=== PATIENT | female | born 1985 | race Native Hawaiian/Other Pacific Islander ===

== ENCOUNTER 2017-08-18 20:10 | Inpatient (IN) | payer SELFPAY ==
[2017-08-18] MEDS ORDERED: LACTATED RINGERS 1,000 ML IV ONE (21:53)
[2017-08-18] MEDS ORDERED: LACTATED RINGERS 1,000 ML ONE (21:58)
[2017-08-18] MEDS ORDERED: ZOFRAN IV PRN (23:20)
[2017-08-18] MEDS ORDERED: XYLOCAINE 2% INFILTRATI ONE (23:20)
[2017-08-18] MEDS ORDERED: NARCAN 0.4 MG/1 ML IV PRN (23:20)
[2017-08-18] MEDS ORDERED: MINERAL OIL PO PRN (23:20)
[2017-08-18] MEDS ORDERED: BRETHINE SUB-Q PRN (23:20)
[2017-08-18] MEDS ORDERED: PHENERGAN PO PRN (23:20)
[2017-08-18] MEDS ORDERED: POLYCILLIN/NS 2 GM/100 ML 2 GM/100 ML BAG IV ONE (23:20)
[2017-08-18] MEDS ORDERED: ePHEDrine SULFATE IV PRN (23:20)
[2017-08-18] MEDS ORDERED: SUBLIMAZE IV PRN (23:20)
[2017-08-18] MEDS ORDERED: BRETHINE IVP PRN (23:20)
--- NOTE | 2017-08-18 23:30 | History and Physical Report ---
History of Present Illness Date of examination: 08/18/17 Date of admission: 08/18/17 23:05 Chief complaint: Leaking fluid History of present illness: Pt is a 31yo HF EDC 09/23/17; EGA 34 6/7 weeks presents to [facility] L[facility]D complaining of vaginal leaking fluid for 2 days. OB u/s showed renee with THUAN 2.1 She received care with [facility] but records are not available, and GBS is unknown. Past History Past Medical History: no pertinent history Past Surgical History: no surgical history Social history: no significant social history, - Obstetrical History Expected Date of Delivery: 09/23/17 Actual Gestation: 35 Week(s) 0 Day(s) : 3 Medications and Allergies Allergies Allergy/AdvReac Type Severity Reaction Status Date / Time No Known Allergies Allergy Unverified 08/18/17 21:36 Home Medications Medication Instructions Recorded Confirmed Last Taken Type No Known Home Medications [No 08/19/17 08/19/17 Unknown History Reported Home Medications] Active Meds: Active Medications Butorphanol Tartrate (Stadol) 2 mg IV Q2H PRN PRN Reason: Pain , Severe (7-10) Ephedrine Sulfate (Ephedrine Sulfate) 10 mg IV Q2M PRN PRN Reason: Hypotension Stop: 08/18/17 23:25 Fentanyl (Sublimaze) 100 mcg IV Q2H PRN PRN Reason: Labor Pain Ampicillin Sodium (Polycillin/Ns 1 Gm/50 Ml) 1 gm in 50 mls @ 100 mls/hr IV Q4HR NIGEL PRN Reason: Protocol Ampicillin Sodium (Polycillin/Ns 2 Gm/100 Ml) 2 gm in 100 mls @ 100 mls/hr IV ONCE ONE PRN Reason: Protocol Stop: 08/19/17 00:19 Lactated Ringer's (Lactated Ringers) 1,000 mls @ 125 mls/hr IV DIRECT NIGEL Oxytocin/Sodium Chloride (Pitocin/Ns 20 Unit/1000ml Drip) 20 units in 1,000 mls @ 125 mls/hr IV DIRECT NIGEL Oxytocin/Sodium Chloride (Pitocin/Ns 30 Unit/500ml) 30 units in 500 mls @ 1 mls /hr IV TITR NIGEL PRN Reason: Protocol Oxytocin/Sodium Chloride (Pitocin/Ns 30 Unit/500ml) 30 units in 500 mls @ 1 mls /hr IV TITR NIGEL; 1 MILLIUNITS/MIN PRN Reason: Protocol Lidocaine (Xylocaine 2%) 20 ml INFILTRATI ONCE ONE Stop: 08/18/17 23:21 Mineral Oil (Mineral Oil) 30 ml PO QHS PRN PRN Reason: Constipation Naloxone HCl (Narcan 0.4 Mg/1 Ml) 0.1 mg IV Q2MIN PRN PRN Reason: Res Rate </= 8 or 02 SAT < 92% Ondansetron HCl (Zofran) 4 mg IV Q8H PRN PRN Reason: Nausea And Vomiting Promethazine HCl (Phenergan) 25 mg PO Q6H PRN PRN Reason: Nausea And Vomiting Terbutaline Sulfate (Brethine) 0.25 mg SUB-Q ONCE PRN PRN Reason: Hyperstimulation/Hypertonicity Stop: 08/18/17 23:21 Terbutaline Sulfate (Brethine) 0.25 mg IVP ONCE PRN PRN Reason: Hyperstimulation/Hypertonicity Stop: 08/18/17 23:21 Review of Systems All systems: negative - Vital Signs Vital signs: Vital Signs Pulse BP 72 102/63 08/18/17 20:52 08/18/17 20:52 Temp Pulse Resp BP Pulse Ox 98.1 F 85 16 111/69 08/18/17 21:37 08/18/17 22:22 08/18/17 21:37 08/18/17 22:22 - Physical Exam Breasts: Positive: deferred Cardiovascular: Regular rate Lungs: Positive: Clear to auscultation Abdomen: Positive: normal appearance Genitourinary (Female): Positive: normal external genitalia Vagina: Positive: normal moisture Uterus: Positive: enlarged Extremities: Positive: normal - Obstetrical FHR: category 1 Uterine Contraction Monitor Mode: External Cervical Dilatation: 1 Cervical Effacement Percentage: 50 station: -3 Uterine Contraction Pattern: Irregular Uterine Tone Measurement Phase: Contraction Uterine Contraction Intensity: Mild Results Result Diagrams: 08/19/17 00:11 All other labs normal. Ultrasound: report reviewed Assessment and Plan - Patient Problems (1) 35 weeks gestation of Onset Date: 08/18/17 Current Visit: Yes Status: Acute Plan to address problem: A: IUP @ 34 6/7 weeks PPROM - stable PTL P: Admit to L&D for expectant management IV Ampicillin NICU consultation Obtain Medical records (2) premature rupture of membranes (PPROM) with onset of labor after 24 hours of rupture in third trimester, antepartum Onset Date: 08/18/17 Current Visit: Yes Status: Acute
[2017-08-18] MEDS ORDERED: PITOCin/NS 20 UNIT/1000ML DRIP 20 UNITS/1,000 ML BAG IV SCH (23:45)
--- NOTE | 2017-08-18 23:52 | Ultrasound Report ---
FINAL REPORT PROCEDURE: US OB LIMITED TECHNIQUE: Real-time limited sonographic examination was performed for evaluation of size, position, heartbeat, fluid volume for each fetus with image documentation (1 or more fetuses). CPT 89812 HISTORY: vaginal leaking/ THUAN COMPARISON: No prior studies are available for comparison. FINDINGS: There is a single live intrauterine gestation. Amniotic fluid index is 2.1 centimeters indicating oligohydramnios. Heart rate is 138 beats per minute. IMPRESSION: Amniotic fluid index is 2.1 centimeters. There is oligohydramnios. heart rate is 138 beats per minute.
[2017-08-19] MEDS: LACTATED RINGERS 1,000 ML IV SCH ×3 (00:42→13:33)
[2017-08-19 00:47] LABS: Hematocrit 35.9 % (30.3-42.9); Hemoglobin 11.1 gm/dl (10.1-14.3); Mean Corpuscular HGB Conc 31 % (30-34); Mean Corpuscular Volume 75 fl (79-97); Platelet Count 304 K/mm3 (140-440); Red Blood Count 4.81 M/mm3 (3.65-5.03); Red Cell Distribution Width 14.8 % (13.2-15.2); White Blood Count 9.8 K/mm3 (4.5-11.0)
[2017-08-19] MEDS: PITOCin/NS 30 UNIT/500ML 30 UNITS/500 ML BAG IV SCH ×5 (00:47→10:39)
[2017-08-19 00:48] LABS: Mean Corpuscular Hemoglobin 23 pg (28-32)
[2017-08-19] MEDS: STADOL IV PRN ×3 (01:50→10:36)
[2017-08-19] MEDS: POLYCILLIN/NS 1 GM/50 ML 1 GM/50 ML BAG IV SCH ×3 (03:49→13:32)
--- NOTE | 2017-08-19 08:57 | Progress Note ---
Assessment and Plan - Patient Problems (1) 35 weeks gestation of Onset Date: 08/18/17 Current Visit: Yes Status: Acute Plan to address problem: heart tracing, toco montoring (2) premature rupture of membranes (PPROM) with onset of labor after 24 hours of rupture in third trimester, antepartum Onset Date: 08/18/17 Current Visit: Yes Status: Acute Plan to address problem: IV pitocin IV antibiotics Anticipate Subjective - Subjective Date of service: 08/19/17 Principal diagnosis: PPROM Interval history: Patient was admitted last night for PPROM with clear fluid. She was started on IV antibiotics for GBS prophylaxis. She now feels occasional contractions. Patient reports: loss of fluid Objective - Vital Signs Vital Signs: Vital Signs - 12hr 08/18/17 08/18/17 08/18/17 21:07 21:22 21:37 Temperature 98.1 F Pulse Rate 86 78 81 Respiratory 16 Rate Blood Pressure 109/71 109/64 111/72 Blood Pressure [Right] O2 Sat by Pulse Oximetry 08/18/17 08/18/17 08/18/17 21:52 22:07 22:22 Temperature Pulse Rate 80 84 85 Respiratory Rate Blood Pressure 99/65 99/63 111/69 Blood Pressure [Right] O2 Sat by Pulse Oximetry 08/19/17 08/19/17 08/19/17 00:36 00:41 00:46 Temperature Pulse Rate 77 75 75 Respiratory Rate Blood Pressure Blood Pressure [Right] O2 Sat by Pulse 96 97 96 Oximetry 08/19/17 08/19/17 08/19/17 00:51 00:56 01:01 Temperature Pulse Rate 76 82 77 Respiratory Rate Blood Pressure Blood Pressure [Right] O2 Sat by Pulse 96 97 97 Oximetry 08/19/17 08/19/17 08/19/17 01:06 01:11 01:16 Temperature Pulse Rate 74 77 81 Respiratory Rate Blood Pressure 90/54 Blood Pressure [Right] O2 Sat by Pulse 96 95 96 Oximetry 08/19/17 08/19/17 08/19/17 01:21 01:26 01:31 Temperature Pulse Rate 77 76 80 Respiratory Rate Blood Pressure Blood Pressure [Right] O2 Sat by Pulse 96 96 96 Oximetry 08/19/17 08/19/17 08/19/17 01:36 01:41 01:46 Temperature Pulse Rate 72 88 86 Respiratory Rate Blood Pressure 87/54 Blood Pressure [Right] O2 Sat by Pulse 95 97 96 Oximetry 08/19/17 08/19/17 08/19/17 01:51 01:55 01:56 Temperature Pulse Rate 74 77 74 Respiratory Rate Blood Pressure Blood Pressure [Right] O2 Sat by Pulse 96 94 96 Oximetry 08/19/17 08/19/17 08/19/17 02:01 02:05 02:06 Temperature Pulse Rate 77 71 82 Respiratory Rate Blood Pressure 93/56 Blood Pressure [Right] O2 Sat by Pulse 94 93 Oximetry 08/19/17 08/19/17 08/19/17 02:11 02:12 02:16 Temperature Pulse Rate 86 88 85 Respiratory Rate Blood Pressure Blood Pressure [Right] O2 Sat by Pulse 91 92 94 Oximetry 08/19/17 08/19/17 08/19/17 02:18 02:21 02:26 Temperature Pulse Rate 78 80 83 Respiratory Rate Blood Pressure Blood Pressure [Right] O2 Sat by Pulse 91 93 93 Oximetry 08/19/17 08/19/17 08/19/17 02:31 02:36 02:41 Temperature Pulse Rate 89 75 74 Respiratory Rate Blood Pressure 93/51 Blood Pressure [Right] O2 Sat by Pulse 93 94 92 Oximetry 08/19/17 08/19/17 08/19/17 02:46 02:51 02:56 Temperature Pulse Rate 86 84 86 Respiratory Rate Blood Pressure Blood Pressure [Right] O2 Sat by Pulse 94 94 94 Oximetry 08/19/17 08/19/17 08/19/17 03:01 03:06 03:11 Temperature Pulse Rate 85 79 80 Respiratory Rate Blood Pressure 83/50 Blood Pressure [Right] O2 Sat by Pulse 93 95 94 Oximetry 08/19/17 08/19/17 08/19/17 03:16 03:21 03:26 Temperature Pulse Rate 83 96 H 90 Respiratory Rate Blood Pressure Blood Pressure [Right] O2 Sat by Pulse 94 94 93 Oximetry 08/19/17 08/19/17 08/19/17 03:31 03:36 03:37 Temperature Pulse Rate 80 87 77 Respiratory Rate Blood Pressure 92/51 Blood Pressure [Right] O2 Sat by Pulse 94 95 Oximetry 08/19/17 08/19/17 08/19/17 03:41 03:46 03:51 Temperature Pulse Rate 88 85 79 Respiratory Rate Blood Pressure Blood Pressure [Right] O2 Sat by Pulse 95 94 95 Oximetry 08/19/17 08/19/17 08/19/17 03:56 04:01 04:06 Temperature Pulse Rate 80 83 75 Respiratory Rate Blood Pressure 90/54 Blood Pressure [Right] O2 Sat by Pulse 94 94 95 Oximetry 08/19/17 08/19/17 08/19/17 04:11 04:16 04:25 Temperature Pulse Rate 79 73 81 Respiratory Rate Blood Pressure Blood Pressure [Right] O2 Sat by Pulse 95 95 96 Oximetry 08/19/17 08/19/17 08/19/17 04:30 04:35 04:40 Temperature Pulse Rate 79 86 84 Respiratory Rate Blood Pressure Blood Pressure [Right] O2 Sat by Pulse 95 96 96 Oximetry 08/19/17 08/19/17 08/19/17 04:45 04:50 04:55 Temperature Pulse Rate 72 77 73 Respiratory Rate Blood Pressure Blood Pressure [Right] O2 Sat by Pulse 94 93 93 Oximetry 08/19/17 08/19/17 08/19/17 05:00 05:05 05:06 Temperature Pulse Rate 73 76 75 Respiratory Rate Blood Pressure 87/52 Blood Pressure [Right] O2 Sat by Pulse 93 93 Oximetry 08/19/17 08/19/17 08/19/17 05:10 05:15 05:20 Temperature Pulse Rate 78 77 78 Respiratory Rate Blood Pressure Blood Pressure [Right] O2 Sat by Pulse 92 93 93 Oximetry 08/19/17 08/19/17 08/19/17 05:25 05:30 05:35 Temperature Pulse Rate 80 81 72 Respiratory Rate Blood Pressure Blood Pressure [Right] O2 Sat by Pulse 91 93 93 Oximetry 08/19/17 08/19/17 08/19/17 05:36 05:40 05:42 Temperature Pulse Rate 77 82 76 Respiratory Rate Blood Pressure 86/51 Blood Pressure [Right] O2 Sat by Pulse 93 91 Oximetry 08/19/17 08/19/17 08/19/17 05:45 05:50 05:55 Temperature Pulse Rate 78 83 79 Respiratory Rate Blood Pressure Blood Pressure [Right] O2 Sat by Pulse 93 93 93 Oximetry 08/19/17 08/19/17 08/19/17 06:00 06:05 06:10 Temperature Pulse Rate 85 78 79 Respiratory Rate Blood Pressure 91/52 Blood Pressure [Right] O2 Sat by Pulse 93 95 93 Oximetry 08/19/17 08/19/17 08/19/17 06:15 06:20 06:25 Temperature Pulse Rate 83 83 77 Respiratory Rate Blood Pressure Blood Pressure [Right] O2 Sat by Pulse 94 93 93 Oximetry 08/19/17 08/19/17 08/19/17 06:30 06:35 06:40 Temperature Pulse Rate 85 87 88 Respiratory Rate Blood Pressure 103/63 Blood Pressure [Right] O2 Sat by Pulse 94 94 94 Oximetry 08/19/17 08/19/17 08/19/17 06:45 06:50 06:55 Temperature Pulse Rate 87 82 86 Respiratory Rate Blood Pressure Blood Pressure [Right] O2 Sat by Pulse 94 95 94 Oximetry 08/19/17 08/19/17 08/19/17 07:00 07:05 07:06 Temperature Pulse Rate 84 90 76 Respiratory Rate Blood Pressure 95/56 Blood Pressure [Right] O2 Sat by Pulse 94 94 Oximetry 08/19/17 08/19/17 08/19/17 07:10 07:15 07:20 Temperature Pulse Rate 86 81 81 Respiratory Rate Blood Pressure Blood Pressure [Right] O2 Sat by Pulse 94 94 94 Oximetry 08/19/17 08/19/17 08/19/17 07:25 07:30 07:35 Temperature Pulse Rate 82 81 77 Respiratory Rate Blood Pressure 87/52 Blood Pressure [Right] O2 Sat by Pulse 94 94 94 Oximetry 08/19/17 08/19/17 08/19/17 07:40 07:45 07:50 Temperature Pulse Rate 78 77 74 Respiratory Rate Blood Pressure Blood Pressure [Right] O2 Sat by Pulse 94 94 94 Oximetry 08/19/17 08/19/17 08/19/17 07:55 08:00 08:05 Temperature Pulse Rate 86 75 76 Respiratory Rate Blood Pressure 89/52 Blood Pressure [Right] O2 Sat by Pulse 94 93 94 Oximetry 08/19/17 08/19/17 08/19/17 08:10 08:15 08:20 Temperature Pulse Rate 75 74 87 Respiratory Rate Blood Pressure Blood Pressure [Right] O2 Sat by Pulse 94 94 95 Oximetry 08/19/17 08/19/17 08/19/17 08:25 08:30 08:42 Temperature Pulse Rate 74 79 79 Respiratory Rate Blood Pressure Blood Pressure [Right] O2 Sat by Pulse 95 95 95 Oximetry 08/19/17 08/19/17 08/19/17 08:44 08:45 08:47 Temperature 98.1 F Pulse Rate 70 78 75 Respiratory 16 Rate Blood Pressure 100/61 Blood Pressure 100/61 [Right] O2 Sat by Pulse 95 93 Oximetry 08/19/17 08/19/17 08:52 08:57 Temperature Pulse Rate 77 91 H Respiratory Rate Blood Pressure Blood Pressure [Right] O2 Sat by Pulse 95 96 Oximetry - Exam FHR: category 1 Uterine Contraction Monitor Mode: External Cervical Dilatation: 1 Cervical Effacement Percentage: 50 station: -2 Uterine Contraction Frequency (min): every 7-10 mins Uterine Contraction Pattern: Irregular Uterine Contraction Intensity: Mild Deep Tendon Reflex Grade: Normal +2 - Labs Labs: Abnormal Labs 08/19/17 00:11 MCV 75 L MCH 23 L Laboratory Results - last 24 hr 08/19/17 08/19/17 00:11 00:11 WBC 9.8 RBC 4.81 Hgb 11.1 Hct 35.9 MCV 75 L MCH 23 L MCHC 31 RDW 14.8 Plt Count 304 Blood Type O POSITIVE Antibody Screen Negative
--- NOTE | 2017-08-19 11:10 | Progress Note ---
Assessment and Plan A: IUP @ 35 weeks Category I Tracing PROM GBS Unknown P: Cook's Cervical Ripening Balloon Placed Continue Pitocin Induction Continue GBS Prophylaxis Prepare for Epidural Anesthesia Requesting Records from [facility] Subjective - Subjective Date of service: 08/19/17 Principal diagnosis: PPROM Patient reports: loss of fluid, contractions, other (States she received care a [facility]; states her course was uncomplicated.) Objective - Vital Signs Vital Signs: Vital Signs - 12hr 08/19/17 08/19/17 08/19/17 00:36 00:41 00:46 Temperature Pulse Rate 77 75 75 Respiratory Rate Blood Pressure Blood Pressure [Right] O2 Sat by Pulse 96 97 96 Oximetry 08/19/17 08/19/17 08/19/17 00:51 00:56 01:01 Temperature Pulse Rate 76 82 77 Respiratory Rate Blood Pressure Blood Pressure [Right] O2 Sat by Pulse 96 97 97 Oximetry 08/19/17 08/19/17 08/19/17 01:06 01:11 01:16 Temperature Pulse Rate 74 77 81 Respiratory Rate Blood Pressure 90/54 Blood Pressure [Right] O2 Sat by Pulse 96 95 96 Oximetry 08/19/17 08/19/17 08/19/17 01:21 01:26 01:31 Temperature Pulse Rate 77 76 80 Respiratory Rate Blood Pressure Blood Pressure [Right] O2 Sat by Pulse 96 96 96 Oximetry 08/19/17 08/19/17 08/19/17 01:36 01:41 01:46 Temperature Pulse Rate 72 88 86 Respiratory Rate Blood Pressure 87/54 Blood Pressure [Right] O2 Sat by Pulse 95 97 96 Oximetry 08/19/17 08/19/17 08/19/17 01:51 01:55 01:56 Temperature Pulse Rate 74 77 74 Respiratory Rate Blood Pressure Blood Pressure [Right] O2 Sat by Pulse 96 94 96 Oximetry 08/19/17 08/19/17 08/19/17 02:01 02:05 02:06 Temperature Pulse Rate 77 71 82 Respiratory Rate Blood Pressure 93/56 Blood Pressure [Right] O2 Sat by Pulse 94 93 Oximetry 08/19/17 08/19/17 08/19/17 02:11 02:12 02:16 Temperature Pulse Rate 86 88 85 Respiratory Rate Blood Pressure Blood Pressure [Right] O2 Sat by Pulse 91 92 94 Oximetry 08/19/17 08/19/17 08/19/17 02:18 02:21 02:26 Temperature Pulse Rate 78 80 83 Respiratory Rate Blood Pressure Blood Pressure [Right] O2 Sat by Pulse 91 93 93 Oximetry 08/19/17 08/19/17 08/19/17 02:31 02:36 02:41 Temperature Pulse Rate 89 75 74 Respiratory Rate Blood Pressure 93/51 Blood Pressure [Right] O2 Sat by Pulse 93 94 92 Oximetry 08/19/17 08/19/17 08/19/17 02:46 02:51 02:56 Temperature Pulse Rate 86 84 86 Respiratory Rate Blood Pressure Blood Pressure [Right] O2 Sat by Pulse 94 94 94 Oximetry 08/19/17 08/19/17 08/19/17 03:01 03:06 03:11 Temperature Pulse Rate 85 79 80 Respiratory Rate Blood Pressure 83/50 Blood Pressure [Right] O2 Sat by Pulse 93 95 94 Oximetry 08/19/17 08/19/17 08/19/17 03:16 03:21 03:26 Temperature Pulse Rate 83 96 H 90 Respiratory Rate Blood Pressure Blood Pressure [Right] O2 Sat by Pulse 94 94 93 Oximetry 08/19/17 08/19/17 08/19/17 03:31 03:36 03:37 Temperature Pulse Rate 80 87 77 Respiratory Rate Blood Pressure 92/51 Blood Pressure [Right] O2 Sat by Pulse 94 95 Oximetry 08/19/17 08/19/17 08/19/17 03:41 03:46 03:51 Temperature Pulse Rate 88 85 79 Respiratory Rate Blood Pressure Blood Pressure [Right] O2 Sat by Pulse 95 94 95 Oximetry 08/19/17 08/19/17 08/19/17 03:56 04:01 04:06 Temperature Pulse Rate 80 83 75 Respiratory Rate Blood Pressure 90/54 Blood Pressure [Right] O2 Sat by Pulse 94 94 95 Oximetry 08/19/17 08/19/17 08/19/17 04:11 04:16 04:25 Temperature Pulse Rate 79 73 81 Respiratory Rate Blood Pressure Blood Pressure [Right] O2 Sat by Pulse 95 95 96 Oximetry 08/19/17 08/19/17 08/19/17 04:30 04:35 04:40 Temperature Pulse Rate 79 86 84 Respiratory Rate Blood Pressure Blood Pressure [Right] O2 Sat by Pulse 95 96 96 Oximetry 08/19/17 08/19/17 08/19/17 04:45 04:50 04:55 Temperature Pulse Rate 72 77 73 Respiratory Rate Blood Pressure Blood Pressure [Right] O2 Sat by Pulse 94 93 93 Oximetry 08/19/17 08/19/17 08/19/17 05:00 05:05 05:06 Temperature Pulse Rate 73 76 75 Respiratory Rate Blood Pressure 87/52 Blood Pressure [Right] O2 Sat by Pulse 93 93 Oximetry 08/19/17 08/19/17 08/19/17 05:10 05:15 05:20 Temperature Pulse Rate 78 77 78 Respiratory Rate Blood Pressure Blood Pressure [Right] O2 Sat by Pulse 92 93 93 Oximetry 08/19/17 08/19/17 08/19/17 05:25 05:30 05:35 Temperature Pulse Rate 80 81 72 Respiratory Rate Blood Pressure Blood Pressure [Right] O2 Sat by Pulse 91 93 93 Oximetry 08/19/17 08/19/17 08/19/17 05:36 05:40 05:42 Temperature Pulse Rate 77 82 76 Respiratory Rate Blood Pressure 86/51 Blood Pressure [Right] O2 Sat by Pulse 93 91 Oximetry 08/19/17 08/19/17 08/19/17 05:45 05:50 05:55 Temperature Pulse Rate 78 83 79 Respiratory Rate Blood Pressure Blood Pressure [Right] O2 Sat by Pulse 93 93 93 Oximetry 08/19/17 08/19/17 08/19/17 06:00 06:05 06:10 Temperature Pulse Rate 85 78 79 Respiratory Rate Blood Pressure 91/52 Blood Pressure [Right] O2 Sat by Pulse 93 95 93 Oximetry 08/19/17 08/19/17 08/19/17 06:15 06:20 06:25 Temperature Pulse Rate 83 83 77 Respiratory Rate Blood Pressure Blood Pressure [Right] O2 Sat by Pulse 94 93 93 Oximetry 08/19/17 08/19/17 08/19/17 06:30 06:35 06:40 Temperature Pulse Rate 85 87 88 Respiratory Rate Blood Pressure 103/63 Blood Pressure [Right] O2 Sat by Pulse 94 94 94 Oximetry 08/19/17 08/19/17 08/19/17 06:45 06:50 06:55 Temperature Pulse Rate 87 82 86 Respiratory Rate Blood Pressure Blood Pressure [Right] O2 Sat by Pulse 94 95 94 Oximetry 08/19/17 08/19/17 08/19/17 07:00 07:05 07:06 Temperature Pulse Rate 84 90 76 Respiratory Rate Blood Pressure 95/56 Blood Pressure [Right] O2 Sat by Pulse 94 94 Oximetry 08/19/17 08/19/17 08/19/17 07:10 07:15 07:20 Temperature Pulse Rate 86 81 81 Respiratory Rate Blood Pressure Blood Pressure [Right] O2 Sat by Pulse 94 94 94 Oximetry 08/19/17 08/19/17 08/19/17 07:25 07:30 07:35 Temperature Pulse Rate 82 81 77 Respiratory Rate Blood Pressure 87/52 Blood Pressure [Right] O2 Sat by Pulse 94 94 94 Oximetry 08/19/17 08/19/17 08/19/17 07:40 07:45 07:50 Temperature Pulse Rate 78 77 74 Respiratory Rate Blood Pressure Blood Pressure [Right] O2 Sat by Pulse 94 94 94 Oximetry 08/19/17 08/19/17 08/19/17 07:55 08:00 08:05 Temperature Pulse Rate 86 75 76 Respiratory Rate Blood Pressure 89/52 Blood Pressure [Right] O2 Sat by Pulse 94 93 94 Oximetry 08/19/17 08/19/17 08/19/17 08:10 08:15 08:20 Temperature Pulse Rate 75 74 87 Respiratory Rate Blood Pressure Blood Pressure [Right] O2 Sat by Pulse 94 94 95 Oximetry 08/19/17 08/19/17 08/19/17 08:25 08:30 08:42 Temperature Pulse Rate 74 79 79 Respiratory Rate Blood Pressure Blood Pressure [Right] O2 Sat by Pulse 95 95 95 Oximetry 08/19/17 08/19/17 08/19/17 08:44 08:45 08:47 Temperature 98.1 F Pulse Rate 70 78 75 Respiratory 16 Rate Blood Pressure 100/61 Blood Pressure 100/61 [Right] O2 Sat by Pulse 95 93 Oximetry 08/19/17 08/19/17 08/19/17 08:52 08:57 09:02 Temperature Pulse Rate 77 91 H 92 H Respiratory Rate Blood Pressure Blood Pressure [Right] O2 Sat by Pulse 95 96 95 Oximetry 08/19/17 08/19/17 08/19/17 09:05 09:07 09:12 Temperature Pulse Rate 71 81 73 Respiratory Rate Blood Pressure 96/63 Blood Pressure [Right] O2 Sat by Pulse 95 96 Oximetry 08/19/17 08/19/17 08/19/17 09:17 09:22 09:27 Temperature Pulse Rate 84 80 78 Respiratory Rate Blood Pressure Blood Pressure [Right] O2 Sat by Pulse 95 94 95 Oximetry 08/19/17 08/19/17 08/19/17 09:32 09:34 09:37 Temperature Pulse Rate 81 83 76 Respiratory Rate Blood Pressure 105/70 Blood Pressure [Right] O2 Sat by Pulse 94 95 Oximetry 08/19/17 08/19/17 08/19/17 09:42 09:47 09:52 Temperature Pulse Rate 81 88 78 Respiratory Rate Blood Pressure Blood Pressure [Right] O2 Sat by Pulse 96 96 96 Oximetry 08/19/17 08/19/17 08/19/17 09:57 09:59 10:02 Temperature Pulse Rate 76 77 83 Respiratory Rate Blood Pressure 101/66 Blood Pressure [Right] O2 Sat by Pulse 96 97 Oximetry 08/19/17 08/19/17 08/19/17 10:05 10:07 10:12 Temperature Pulse Rate 84 89 82 Respiratory Rate Blood Pressure 101/62 Blood Pressure [Right] O2 Sat by Pulse 97 96 Oximetry 08/19/17 08/19/17 08/19/17 10:17 10:22 10:27 Temperature Pulse Rate 76 85 79 Respiratory Rate Blood Pressure Blood Pressure [Right] O2 Sat by Pulse 96 95 94 Oximetry 08/19/17 08/19/17 08/19/17 10:31 10:32 10:36 Temperature Pulse Rate 80 81 Respiratory 18 Rate Blood Pressure 107/67 Blood Pressure [Right] O2 Sat by Pulse 96 Oximetry 08/19/17 08/19/17 08/19/17 10:37 10:42 10:47 Temperature Pulse Rate 91 H 86 80 Respiratory Rate Blood Pressure Blood Pressure [Right] O2 Sat by Pulse 94 95 93 Oximetry 08/19/17 08/19/17 08/19/17 10:52 10:54 10:57 Temperature Pulse Rate 87 79 80 Respiratory Rate Blood Pressure Blood Pressure [Right] O2 Sat by Pulse 94 90 91 Oximetry 08/19/17 08/19/17 08/19/17 11:00 11:01 11:02 Temperature Pulse Rate 83 78 92 H Respiratory Rate Blood Pressure 112/72 Blood Pressure [Right] O2 Sat by Pulse 90 92 Oximetry - Exam Breasts: normal Cardiovascular: Regular rate Lungs: Clear to auscultation, Normal air movement Abdomen: Present: normal appearance, soft, normal bowel sounds Uterus: Present: normal, fundal height above umbilicus FHR: category 1 Uterine Contraction Monitor Mode: External Cervical Dilatation: 1 (Leaking a large amount of clear fluid) Cervical Effacement Percentage: 50 station: -3 Uterine Contraction Pattern: Regular Uterine Tone Measurement Phase: Contraction Uterine Contraction Intensity: Moderate Extremities: normal - Labs Labs: Abnormal Labs 08/19/17 00:11 MCV 75 L MCH 23 L Laboratory Results - last 24 hr 08/19/17 08/19/17 00:11 00:11 WBC 9.8 RBC 4.81 Hgb 11.1 Hct 35.9 MCV 75 L MCH 23 L MCHC 31 RDW 14.8 Plt Count 304 Blood Type O POSITIVE Antibody Screen Negative
[2017-08-19] MEDS ORDERED: ePHEDrine SULFATE ONE (11:29)
[2017-08-19] MEDS ORDERED: NARCAN 2 MG/2 ML IV PRN (14:11)
[2017-08-19] MEDS ORDERED: ePHEDrine SULFATE IV PRN (14:11)
[2017-08-19] MEDS ORDERED: fentaNYL-BUPIV 2 MCG/ML-0.125% 200 MCG/100 ML BAG EPIDURAL SCH (15:00)
[2017-08-19] MEDS ORDERED: XYLOCAINE MPF 2% ONE ×2 (15:04→15:26)
--- NOTE | 2017-08-19 16:01 | Procedure Note ---
OB Delivery Note - Delivery Date of Delivery: 08/19/17 Surgeon: MARLYN HANEY Estimated blood loss: other (150cc) - Vaginal Delivery presentation: vertex Delivery position: OA Intrapartum events: labor-<37 weeks, hydramnios Delivery induction: oxytocin Delivery augmentation: pitocin Delivery monitor: external FHT, external uterine Route of delivery: Delivery placenta: spontaneous Delivery cord: 3 umbilical vessels Episiotomy: none Delivery laceration: none Anesthesia: epidural Delivery comments: delivered OA and placed on Mom's chest for [id number] bonding and delayed cord clamping. - Infant A at 1 minute: 7 at 5 minutes: 9 Infant Gender: Male ([id number])
[2017-08-19] MEDS ORDERED: TYLENOL PO PRN (16:06)
[2017-08-19] MEDS ORDERED: NORCO 5/325 PO PRN (16:06)
[2017-08-19] MEDS ORDERED: LANSINOH TP PRN (16:06)
[2017-08-19] MEDS ORDERED: PHENERGAN PO PRN (16:06)
[2017-08-19] MEDS ORDERED: BENADRYL PO PRN (16:06)
[2017-08-19] MEDS ORDERED: PHENERGAN PR PRN (16:06)
[2017-08-19] MEDS ORDERED: ZOFRAN IV PRN (16:06)
[2017-08-19] MEDS ORDERED: TUCKS PAD TP PRN (16:06)
[2017-08-19] MEDS ORDERED: SODIUM CHLORIDE FLUSH SYRINGE 10 ML IV NR (17:00)
[2017-08-19] MEDS ORDERED: PITOCin/NS 20 UNIT/1000ML DRIP 20 UNITS/1,000 ML BAG IV SCH (17:00)
[2017-08-19] MEDS: MOTRIN PO SCH ×2 (18:19→23:28)
[2017-08-19] MEDS ORDERED: MILK OF MAGNESIA PO PRN (22:00)
[2017-08-19] MEDS ORDERED: DULCOLAX PR PRN (22:00)
[2017-08-19] MEDS: FEOSOL PO SCH (23:27)
[2017-08-19] MEDS: COLACE PO SCH (23:28)
[2017-08-20] MEDS ORDERED: BOOSTRIX IM ONE (06:00)
[2017-08-20] MEDS: MOTRIN PO SCH ×2 (06:04→20:48)
[2017-08-20 06:10] LABS: Hematocrit 26.6 % (30.3-42.9); Hemoglobin 9.1 gm/dl (10.1-14.3)
[2017-08-20] MEDS: COLACE PO SCH ×2 (10:00→21:00)
[2017-08-20] MEDS: PRENATAL VITAMIN PO SCH (10:00)
[2017-08-20] MEDS: FEOSOL PO SCH ×2 (10:00→21:00)
--- NOTE | 2017-08-20 10:21 | Progress Note ---
Assessment and Plan A: PP Day #1 Stable P: Follow Routine Postparum Orders D/C Home in the AM RTO in 6 Weeks Subjective - Subjective Date of service: 08/20/17 Principal diagnosis: PPROM Patient reports: appetite normal, voiding normally, pain well controlled, flatus , ambulating normally [place]: doing well, bottle feeding Objective - Vital Signs Latest vital signs: Vital Signs Temp Pulse Resp BP BP Pulse Ox 08/20/17 00:28 16 08/20/17 00:00 98.2 F 60 18 96/56 08/19/17 23:28 16 08/19/17 18:25 98.1 F 16 08/19/17 17:39 76 93 08/19/17 17:34 78 94 08/19/17 17:33 75 102/62 08/19/17 17:29 73 93 08/19/17 17:24 72 93 08/19/17 17:19 69 95 08/19/17 17:18 67 100/55 08/19/17 17:14 70 95 08/19/17 17:09 71 94 08/19/17 17:04 72 94 08/19/17 17:03 76 105/60 08/19/17 16:59 74 93 08/19/17 16:54 72 92 08/19/17 16:49 76 93 08/19/17 16:48 79 100/56 08/19/17 16:44 72 95 08/19/17 16:39 73 94 08/19/17 16:34 74 95 08/19/17 16:33 74 103/66 08/19/17 16:29 74 93 08/19/17 16:24 73 94 08/19/17 16:19 80 94 08/19/17 16:18 77 95/64 08/19/17 16:14 76 94 08/19/17 16:09 78 95 08/19/17 16:04 87 93 08/19/17 16:03 87 94/63 08/19/17 15:59 86 95 08/19/17 15:54 91 H 96 08/19/17 15:49 94 H 95 08/19/17 15:48 85 103/68 08/19/17 15:44 78 93 08/19/17 15:39 86 93 08/19/17 15:34 79 95 08/19/17 15:33 77 100/67 08/19/17 15:29 81 95 08/19/17 15:24 78 93 08/19/17 15:19 78 105/64 92 08/19/17 15:16 88 91 08/19/17 15:14 75 93 08/19/17 15:10 77 91 08/19/17 15:09 80 93 08/19/17 15:05 68 98/56 08/19/17 15:04 70 90 08/19/17 14:59 78 90 08/19/17 14:57 75 91 08/19/17 14:54 77 89 08/19/17 14:49 82 101/62 89 08/19/17 14:44 85 89 08/19/17 14:39 78 91 08/19/17 14:38 76 91 08/19/17 14:35 83 101/61 08/19/17 14:34 81 89 08/19/17 14:32 79 90 08/19/17 14:29 76 91 08/19/17 14:25 78 90 08/19/17 14:24 75 95/50 92 08/19/17 14:19 80 95 08/19/17 14:18 77 88/51 91 08/19/17 14:16 83 89/54 08/19/17 14:14 85 93/55 89 08/19/17 14:12 77 94/50 08/19/17 14:11 79 88 08/19/17 14:10 83 92/51 08/19/17 14:09 79 89 08/19/17 14:08 84 89/53 08/19/17 14:06 92 H 101/64 08/19/17 14:05 82 90/52 91 08/19/17 14:04 79 94 08/19/17 14:02 85 120/56 08/19/17 14:00 54 L 86 08/19/17 13:59 84 95 08/19/17 13:58 87 113/42 08/19/17 13:56 85 118/56 08/19/17 13:54 87 94 08/19/17 13:49 83 95 08/19/17 13:44 83 93 08/19/17 13:39 97 H 94 08/19/17 13:34 93 H 94 08/19/17 13:32 93 H 112/79 08/19/17 13:30 95 H 91 08/19/17 13:29 86 93 08/19/17 13:24 89 95 08/19/17 13:19 97 H 93 08/19/17 13:16 82 90 08/19/17 13:14 91 H 93 08/19/17 13:11 79 91 08/19/17 13:09 84 95 08/19/17 13:04 90 92 08/19/17 13:01 77 107/62 08/19/17 13:00 84 91 08/19/17 12:59 75 91 08/19/17 12:54 89 93 08/19/17 12:49 80 93 08/19/17 12:47 94 H 91 08/19/17 12:44 87 92 08/19/17 12:41 75 91 08/19/17 12:39 81 92 08/19/17 12:35 78 91 08/19/17 12:34 85 95 08/19/17 12:32 79 110/63 08/19/17 12:29 82 93 08/19/17 12:28 94 H 91 08/19/17 12:24 84 94 08/19/17 12:19 83 95 08/19/17 12:14 86 93 08/19/17 12:09 83 94 08/19/17 12:08 91 H 90 08/19/17 12:04 85 94 08/19/17 12:01 78 103/62 08/19/17 11:59 80 96 08/19/17 11:54 81 94 08/19/17 11:49 78 93 08/19/17 11:44 81 94 08/19/17 11:39 80 95 08/19/17 11:34 79 93 08/19/17 11:31 78 102/57 08/19/17 11:29 76 95 08/19/17 11:24 86 96 08/19/17 11:22 79 91 08/19/17 11:19 79 95 08/19/17 11:07 93 H 91 08/19/17 11:02 92 H 92 08/19/17 11:01 78 112/72 08/19/17 11:00 83 90 08/19/17 10:57 80 91 08/19/17 10:54 79 90 08/19/17 10:52 87 94 08/19/17 10:47 80 93 08/19/17 10:42 86 95 08/19/17 10:37 91 H 94 08/19/17 10:36 18 08/19/17 10:32 81 96 08/19/17 10:31 80 107/67 08/19/17 10:27 79 94 08/19/17 10:22 85 95 Intake and Output 08/19/17 08/20/17 08/20/17 22:59 06:59 14:59 Intake Total 120 240 Output Total 150 400 Balance -30 -160 Intake: Oral 120 240 Output: Urine 150 400 Void 150 400 Other: Total, Intake Amount 120 240 Total, Output Amount 150 400 # Voids Void 1 - Exam Breasts: Present: normal Cardiovascular: Present: Regular rate Lungs: Present: Clear to auscultation, Normal air movement Abdomen: Present: normal appearance, soft, normal bowel sounds Uterus: Present: normal, firm, fundal height below umbilicus Extremities: Present: normal - Labs Labs: Abnormal lab results 08/20/17 Range/Units 05:41 Hgb 9.1 L (10.1-14.3) gm/dl Hct 26.6 L D (30.3-42.9) %
--- NOTE | 2017-08-20 10:23 | Discharge Summary ---
Providers - Providers Date of Admission: 08/18/17 23:05 Date of discharge: 08/21/17 Attending physician: ISABELLA KIM MD 08/18/17 23:25 Consult to Physician [CONS] Urgent Consulting Provider: DEANDRA KEITA Reason For Exam: IUP @ 35 weeks; PPROM Place consult to:: NICU Notified:: NICU Phone number called:: [phone] Was contact made?: Yes Time called:: 23:27 Primary care physician: ISABELLA KIM MD Hospitalization Reason for admission: rupture of membranes Delivery: Episiotomy: none Laceration: none Other procedures: none complications: none Discharge diagnosis: delivery [place] baby: male Condition at discharge: Good Disposition: DC-01 TO HOME OR SELFCARE Plan - Provider Discharge Summary Activity: routine, no sex for 6 weeks, no heavy lifting 4 weeks, no strenuous exercise Diet: routine Instructions: routine Additional instructions: [] Smoking cessation referral if applicable(refer to patient education folder for contact #) [] Refer to [facility]'s [facility] Booklet Call your doctor immediately for: * Fever > 100.5 * Heavy vaginal bleeding ( >1 pad per hour) * Severe persistent headache * Shortness of breath * Reddened, hot, painful area to leg or breast * Drainage or odor from incision. * Keep incision clean and dry at all times and follow doctor's instructions regarding bathing/showering - Follow up plan Follow up: ISABELLA KIM MD [Primary Care Provider] - 6 Weeks
[2017-08-20] MEDS ORDERED: M-M-R II VACCINE SUB-Q ONE (12:00)
--- NOTE | 2017-08-20 13:12 | Progress Note ---
Subjective Date of service: 08/20/17 Principal diagnosis: PPROM Interval history: 1st day after normal vaginal delivery Patient is in the bed, comfortable. Pain is well controlled with pain meds. Ambulated well. No residual neurological deficit. No anesthesia complications Objective - Constitutional Vitals: Vital Signs - 12hr 08/20/17 08:50 Temperature 98.1 F Pulse Rate 84 Respiratory 18 Rate Blood Pressure 98/58 [Right] - Labs CBC & Chem 7: 08/20/17 05:41 Labs: Abnormal lab results 08/20/17 Range/Units 05:41 Hgb 9.1 L (10.1-14.3) gm/dl Hct 26.6 L D (30.3-42.9) %
[2017-08-21 03:56] VITALS: BP 91/48
[2017-08-21] MEDS: MOTRIN PO SCH ×2 (04:10→09:18)
[2017-08-21] MEDS: COLACE PO SCH (09:18)
[2017-08-21] MEDS: FEOSOL PO SCH (09:18)
[2017-08-21] MEDS: PRENATAL VITAMIN PO SCH (09:18)
[2017-08-21] MEDS ORDERED: FEOSOL PO SCH (10:00)
== END 2017-08-21 15:13 | disposition home or self-care (01) | DRG 775 ==
LOC: TRG 20:10 → OBSVTOIN 23:05 → LD 23:05 → OB 08-19 21:46
PROVIDERS: ADMIT Obstetrics & Gynecology; ATTEND Obstetrics & Gynecology
PROC: 10E0XZZ Delivery of Products of Conception, External Approach (ICD-10-PCS; principal; 2017-08-19)
PROC: 3E0P3VZ Introduction of Hormone into Female Reproductive, Percutaneous Approach (ICD-10-PCS; 2017-08-19)
PROC: 3E0R3BZ Introduction of Anesthetic Agent into Spinal Canal, Percutaneous Approach (ICD-10-PCS; 2017-08-19)
PROC: 00HU33Z Insertion of Infusion Device into Spinal Canal, Percutaneous Approach (ICD-10-PCS; 2017-08-19)
DX: O42.113 Preterm premature rupture of membranes, onset of labor more than 24 hours following rupture, third trimester (principal); O40.3XX0 Polyhydramnios, third trimester, not applicable or unspecified; Z37.0 Single live birth
CPT/HCPCS: 36415; 76815; 85014; 85018; 85027; 86592; 86706; 86850; 86900; 86901; 88307; 90471; 99211; G0463; J0290; J0595; J2590; J7120

== ENCOUNTER 2019-06-26 18:40 | Inpatient (IN) | payer SELFPAY ==
--- NOTE | 2019-06-26 19:27 | History and Physical Report ---
History of Present Illness Date of examination: 06/26/19 Date of admission: 06/26/19 19:02 Chief complaint: Labor History of present illness: 33 year old presents in active labor. Patient receives care at [facility] and she brings rec ords with her. LMP 12/13/17. EDC 07/21/19. significant for the following: anemia, advanced maternal age. labs are as follows: O+, antibody screen negative, rubella immune, hepatitis B surface antigen negative, RPR nonreactive, HIV negative, quad screen negative, GC negative, CT negative, 1 hour sugar test 132, no GBS result on chart. Past History Past Medical History: no pertinent history Past Surgical History: no surgical history LONG TERM History: denies: abnormal PAP smear, chlamydia, gonorrhea, hepatitis B, hepatitis C, herpes, HIV, syphilis, trichomonas Family/Genetic History: none Social history: , lives with family, full code. denies: smoking, alcohol abuse, prescription drug abuse, IV drug use - Obstetrical History Expected Date of Delivery: 07/21/19 Actual Gestation: 36 Week(s) 3 Day(s) : 6 Para: 3 Hx # Term Pregnancies: 3 Number of Pregnancies: 0 Spontaneous Abortions: 2 Induced : 0 Number of Living Children: 3 Medications and Allergies Allergies Allergy/AdvReac Type Severity Reaction Status Date / Time No Known Allergies Allergy Unverified 08/18/17 21:36 Home Medications Medication Instructions Recorded Confirmed Last Taken Type No Known Home Medications [No 08/19/17 08/19/17 Unknown History Reported Home Medications] Active Meds: Active Medications Ephedrine Sulfate (Ephedrine Sulfate) 10 mg IV Q2M PRN PRN Reason: Hypotension Oxytocin/Sodium Chloride (Pitocin/Ns 20 Unit/1000ml Drip) 20 units in 1,000 mls @ 125 mls/hr IV DIRECT NIGEL Lactated Ringer's (Lactated Ringers) 1,000 mls @ 125 mls/hr IV DIRECT NIGEL Ampicillin Sodium (Ampicillin/Ns 2 Gm/100 Ml) 2 gm in 100 mls @ 100 mls/hr IV ONCE ONE; Protocol Stop: 06/26/19 20:59 Lidocaine (Xylocaine 2%) 20 ml INFILTRATI ONCE ONE Stop: 06/26/19 20:05 Review of Systems All systems: negative (contractions) - Physical Exam Abdomen: Positive: normal appearance, soft. Negative: distention, tenderness, guarding, rigidity Genitourinary (Female): Positive: normal external genitalia, normal perenium. Negative: perineal/vulvar lesions (no lesions seen on careful exam with bright light upon admission) Vagina: Positive: normal moisture Uterus: Positive: enlarged. Negative: tender Anus/Rectum: Positive: normal perianal skin Extremities: Positive: normal. Negative: tenderness, edema - Obstetrical FHR: category 1 Uterine Contraction Monitor Mode: External Cervical Dilatation: 8 Cervical Effacement Percentage: 90 station: -1 Uterine Contraction Pattern: Regular Uterine Contraction Intensity: Moderate Results All other labs normal. Assessment and Plan A: at 36 3/7 weeks gestation. Active advanced labor. GBS unknown. AMA. P: Admit. Continuous EFM. GBS prophylaxis. Anticipate vaginal .
[2019-06-26 19:59] LABS: Hematocrit 37.2 % (30.3-42.9); Hemoglobin 12.5 gm/dl (10.1-14.3); Mean Corpuscular HGB Conc 34 % (30-34); Mean Corpuscular Volume 76 fl (79-97); Platelet Count 243 K/mm3 (140-440); Red Blood Count 4.92 M/mm3 (3.65-5.03)
[2019-06-26] MEDS ORDERED: AMPICILLIN/NS 2 GM/100 ML 2 GM/100 ML BAG IV ONE (20:00)
[2019-06-26] MEDS ORDERED: LACTATED RINGERS 1,000 ML IV SCH (20:00)
[2019-06-26] MEDS ORDERED: PITOCin/NS 20 UNIT/1000ML DRIP 20 UNITS/1,000 ML BAG IV SCH (20:00)
[2019-06-26] MEDS ORDERED: XYLOCAINE 2% INFILTRATI ONE (20:04)
[2019-06-26] MEDS ORDERED: LANSINOH TP PRN (20:49)
[2019-06-26] MEDS ORDERED: BENADRYL PO PRN (20:49)
[2019-06-26] MEDS ORDERED: TUCKS PAD TP PRN (20:49)
[2019-06-26] MEDS ORDERED: ZOFRAN IV PRN (20:49)
[2019-06-26] MEDS ORDERED: MILK OF MAGNESIA PO PRN (20:49)
[2019-06-26] MEDS ORDERED: DULCOLAX PR PRN (20:49)
[2019-06-26] MEDS ORDERED: NORCO 5/325 PO PRN (20:49)
[2019-06-26] MEDS ORDERED: SODIUM CHLORIDE FLUSH SYRINGE 10 ML IV PRN (21:00)
--- NOTE | 2019-06-26 21:08 | Procedure Note ---
OB Delivery Note - Delivery Date of Delivery: 06/26/19 Surgeon: JESUS ALBERTO MAGUIRE Estimated blood loss: other (250 cc) - Vaginal Delivery presentation: vertex Delivery position: OA Intrapartum events: none Delivery induction: none Delivery augmentation: rupture of membranes Delivery monitor: external FHT, external uterine Route of delivery: Delivery placenta: spontaneous Delivery cord: 3 umbilical vessels Episiotomy: none Delivery laceration: none Anesthesia: none Delivery comments: Spontaneous vaginal delivery at 20:17 of liveborn male weighing 7 lb. 4 oz. over intact perineum with apgars of 8/9. Baby placed skin to skin with mom immediately after . Spontaneous cry and respirations. 3 vessel cord double clamped and cut. Cord blood obtained. Spontaneous delivery of intact placenta and membranes. EBL 250 cc. Fundus firm and midline. No lacerations noted. Vaginal sweep negative. Sponge count correct. Mother and baby stable.
--- NOTE | 2019-06-26 23:06 | Ultrasound Report ---
ULTRASOUND PELVIS INDICATION: check for retained placenta. TECHNIQUE: Transabdominal. Duplex Color Doppler used: Yes. COMPARISON: None available FINDINGS: Uterus: Present. Size: 21.5 x 11.2 x 9.0 cm. Endometrial complex: Thickened measuring 2.2 cm. Mass lesions: None. Additional findings: No color Doppler flow is seen within the endometrium to suggest retained product s of conception Right Ovary -- not visualized secondary to bowel gas Left Ovary--not visualized secondary to bowel gas Urinary Bladder: Normal. Free Fluid: None. Additional Findings: None. IMPRESSION: 1. Thickened endometrial stripe characteristic for hemorrhage. No definite sonographic madelyn dence for retained products of conception Signer Name: Jossue Leone MD Signed: 06/26/2019 11:02 PM Workstation Name: [email or web address]
[2019-06-27] MEDS: IBUPROFEN PO SCH ×5 (00:02→23:54)
[2019-06-27 08:42] LABS: Hematocrit 34.8 % (30.3-42.9); Hemoglobin 11.6 gm/dl (10.1-14.3)
--- NOTE | 2019-06-27 12:27 | Progress Note ---
Assessment and Plan - Patient Problems (1) Status post normal vaginal delivery Current Visit: Yes Status: Acute Plan to address problem: PPD 1 - stable Continue routine orders Anticipate discharge in 24 hours Subjective - Subjective Date of service: 06/27/19 Principal diagnosis: PPD #1; s/p Interval history: see H&P and OB Delivery Procedure Note Patient reports: appetite normal, voiding normally, pain well controlled, ambulating normally, no dizzy ambulation [place]: doing well, other (breast and bottle feeding) Objective - Vital Signs Latest vital signs: Vital Signs Temp Pulse Resp BP BP Pulse Ox 06/27/19 08:34 97.8 F 63 18 90/51 06/27/19 00:00 98.8 F 74 18 101/66 06/26/19 23:40 98.7 F 81 16 97/51 95 06/26/19 22:22 71 106/59 06/26/19 22:08 77 101/57 06/26/19 21:52 82 101/62 06/26/19 21:38 86 97/68 06/26/19 21:22 81 95/51 06/26/19 21:07 85 98/53 06/26/19 20:52 85 96/55 06/26/19 20:46 87 101/53 06/26/19 20:23 83 121/51 Intake and Output 06/26/19 06/27/19 06/27/19 23:59 07:59 15:59 Intake Total 300 480 Balance 300 480 Intake: Oral 480 Intake, Free Water 300 Other: Total, Intake Amount 480 Weight 65.317 kg Estimated Blood Loss 250 - Exam Cardiovascular: Present: Regular rate Lungs: Present: Clear to auscultation, Normal air movement Abdomen: Present: normal appearance, soft Vulva: both: normal Uterus: Present: normal, firm, fundal height at umbilicus Extremities: Present: normal Comments: small lochia - Labs Labs: Abnormal lab results 06/26/19 Range/Units Unknown WBC 11.7 H (4.5-11.0) K/mm3 MCV 76 L (79-97) fl MCH 25 L (28-32) pg RDW 22.0 H (13.2-15.2) %
[2019-06-28] MEDS: IBUPROFEN PO SCH ×2 (05:43→09:00)
--- NOTE | 2019-06-28 09:50 | Discharge Summary ---
Providers - Providers Date of Admission: 06/26/19 19:02 Date of discharge: 06/28/19 (1200) Attending physician: LOUIE ROLAND MD Primary care physician: LOUIE ROLAND MD Hospitalization Reason for admission: active labor Delivery: Episiotomy: none Laceration: none Other procedures: none complications: none Discharge diagnosis: delivery (late delivery @ 36.3 wks gestation) [place] baby: male Hospital course: See admission H & P, OB delivery summary and PP progress notes Condition at discharge: Good Disposition: DC-01 TO HOME OR SELFCARE - Discharge Diagnoses (1) Status post normal vaginal delivery Status: Acute Plan - Provider Discharge Summary Activity: routine, no sex for 6 weeks, no heavy lifting 4 weeks, no strenuous exercise Diet: routine Instructions: routine Additional instructions: [] Smoking cessation referral if applicable(refer to patient education folder for contact #) [] Refer to [facility]'s [facility] Booklet Call your doctor immediately for: * Fever > 100.5 * Heavy vaginal bleeding ( >1 pad per hour) * Severe persistent headache * Shortness of breath * Reddened, hot, painful area to leg or breast - Follow up plan Follow up: ISABELLA KIM MD [Staff Physician] - 6 Weeks
[2019-06-28 17:03] VITALS: BP 112/74
== END 2019-06-28 17:07 | disposition home or self-care (01) | DRG 807 ==
LOC: TRG 18:40 → LD 19:02 → OB 23:40
PROVIDERS: ADMIT Obstetrics & Gynecology; ATTEND Obstetrics & Gynecology
PROC: 10E0XZZ Delivery of Products of Conception, External Approach (ICD-10-PCS; principal; 2019-06-26)
DX: O60.14X0 Preterm labor third trimester with preterm delivery third trimester, not applicable or unspecified (principal); Z37.0 Single live birth; Z3A.36 36 weeks gestation of pregnancy
CPT/HCPCS: 36415; 76857; 85014; 85018; 85027; 86592; 86850; 86900; 86901; G0378; J0290; J2590; J7120